=== PATIENT | female | born 1985 ===

== ENCOUNTER 2018-03-31 11:53 | Outpatient (CLI) | payer OTHER | END 2018-03-31 11:54 | disposition home or self-care (01) | LOC: C.USIC 11:54 | DX: N60.09 Solitary cyst of unspecified breast (principal) ==

== ENCOUNTER 2018-04-19 07:42 | Outpatient (CLI) | payer SELFPAY | END 2018-04-19 07:43 | disposition home or self-care (01) | LOC: C.LAB 07:42 | DX: Z33.1 Pregnant state, incidental (principal) ==